=== PATIENT | male | born 1955 | race Caucasian/White ===

== ENCOUNTER 2016-09-22 12:32 | Emergency (ER) | payer SELFPAY ==
[2016-09-22 12:42] VITALS: BP 155/92; PULSE 74; TEMP 97.8; BMI 21.4
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
== END 2016-09-22 14:12 | disposition home or self-care (01) ==
LOC: JERFT 12:32
PROC: 2W3AX1Z Immobilization of Right Upper Arm using Splint (ICD-10-PCS; principal; 2016-09-22)
DX: S52.124A Nondisplaced fracture of head of right radius, initial encounter for closed fracture (principal); X58.XXXA Exposure to other specified factors, initial encounter; Y93.55 Activity, bike riding; Y92.410 Unspecified street and highway as the place of occurrence of the external cause; F17.210 Nicotine dependence, cigarettes, uncomplicated
CPT/HCPCS: 73070-TC-RT; 73090-TC-RT; 99282-25

== ENCOUNTER 2016-11-21 15:24 | Inpatient (IN) | payer BC ==
[2016-11-21 15:32] VITALS: BMI 22.3
--- NOTE | 2016-11-21 16:34 | PDOC ---
History of Present Illness - General Chief Complaint: CVA/TIA Stated Complaint: CHEST PAIN Time Seen by Provider: 11/21/16 16:08 History Source: Patient Exam Limitations: No Limitations - History of Present Illness Initial Comments: 11/21/16 16:29 The patient is a 61M with a PMH of CVA July 19, 2016 and HTN who presents to the ED with L sided weakness since Monday. 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 He thought that this would eventually go away and he is presenting today because it has not gone away. NIH Stroke Scale - Last Known Well Date/Time & Onset Date Last Known Well: 11/19/16 Time Last Known Well: 12:00 - Initial Evaluation Level of consciousness: Alert Ask patient the month and their age: Answers both correctly Ask patient to open & close eyes; make fist and let go: Obeys both correctly Best gaze (horizontal eye movement): Normal Visual field testing: No visual field loss Facial paresis (Show teeth/raise eyebrows/close eyes tight): Normal symmetrical movement Motor Function: Left Arm: Some effort against gravity Motor Function: Right Arm: Normal (extends arm 90 (or 45) degrees for 10 seconds without drift Motor Function: Left Leg: Normal (extends leg 30 degrees for 5 seconds without drift) Motor Function: Right Leg: Normal (extends leg 30 degrees for 5 seconds without drift) Limb Ataxia: No ataxia Sensory(Use pinprick test arms,legs,trunk,face/side to side): Normal Best language (Describe picture, name items, read sentences): No Aphasia Dysarthria (read several words): Normal articulation Extinction and Inattention: No abnormality - Total Score NIH Stroke Scale Score: 2 Past History - Past Medical History Allergies/Adverse Reactions: Allergies Allergy/AdvReac Type Severity Reaction Status Date / Time No Known Allergies Allergy Verified 11/21/16 15:28 Home Medications: Ambulatory Orders Oxycodone HCl/Acetaminophen [Percocet 5-325 mg Tablet] 1 - 2 tab PO Q6H PRN #8 tab MDD 4 09/22/16 Amlodipine Besylate [Norvasc -] 5 mg PO DAILY 11/21/16 Amlodipine Besylate [Norvasc -] 10 mg PO DAILY #30 tablet 11/23/16 Miscellaneous Medical Supply [Outpatient Order] 1 each ASDIR #1 [facility] [place] Miscellaneous Medical Supply [Outpatient Order] 1 each ASDIR #1 [facility] Valsartan [Diovan] 80 mg PO DAILY #30 tablet 11/23/16 Aspirin [ASA -] 81 mg PO DAILY #30 tab 11/24/16 Atorvastatin Calcium 40 mg PO DAILY #30 tab 11/24/16 Clopidogrel Bisulfate [Plavix -] 75 mg PO DAILY #30 tab 11/24/16 CVA: Yes HTN: Yes - Immunization History Immunization Up to Date: Yes - Suicide/Smoking/Psychosocial Hx Smoking History: Current every day smoker Have you smoked in the past 12 months: Yes Number of Cigarettes Smoked Daily: 10 Information on smoking cessation initiated: Yes 'Breaking Loose' booklet given: 11/21/16 Hx Alcohol Use: No Drug/Substance Use Hx: No Substance Use Type: None Review of Systems - Review of Systems Able to Perform ROS?: Yes Is the patient limited Pashto proficient: No Constitutional: No: Chills, Fever HEENTM: No: Eye Pain, Blurred Vision, Double Vision Respiratory: No: Cough, Shortness of Breath Cardiac (ROS): No: Chest Pain, Palpitations, Syncope ABD/GI: No: Nausea, Vomiting : No: Burning, Dysuria, Discharge Musculoskeletal: Yes: Muscle Weakness. No: Back Pain Neurological: Yes: Weakness (L arm and L leg). No: Headache, Numbness Endocrine: No: Unexplained Weight Gain, Change in Weight *Physical Exam - Vital Signs Last Vital Signs Temp Pulse Resp BP Pulse Ox 98.2 F 77 18 173/94 100 11/21/16 15:28 11/21/16 15:28 11/21/16 15:28 11/21/16 15:28 11/21/16 15:28 - Physical Exam General Appearance: Yes: Nourished, Appropriately Dressed. No: Apparent Distress HEENT: positive: Normal Voice, Hearing Grossly Normal Respiratory/Chest: positive: Lungs Clear, Normal Breath Sounds. negative: Chest Tender, Respiratory Distress, Rhonchi, Stridor, Wheezing Cardiovascular: positive: Regular Rhythm, Regular Rate, S1, S2. negative: Diastolic Murmur, Systolic Murmur Gastrointestinal/Abdominal: positive: Flat, Soft. negative: Tender Musculoskeletal: negative: CVA Tenderness, CVA Tenderness (R), CVA Tenderness (L ) Extremity: negative: Normal Range of Motion, Swelling, Calf Tenderness Integumentary: positive: Dry, Warm. negative: Clammy, Diaphoresis Neurologic: positive: shoe dyer II-XII NML intact, Fully Oriented, Alert, Normal Mood/ Affect, Respond to painful stimul, Responsive, Finger to Nose (Unable to complete on L side). negative: Motor Strength 5/5 (Motor strength 1/5 in L upper extremity), Abnormal Cranial NS, EOM Palsy, Facial Droop, Numbness, Sensory Deficit, Confused, Disoriented ED Treatment Course - LABORATORY CBC & Chemistry Diagram: 11/22/16 06:00 11/22/16 06:00 - RADIOLOGY Radiology Studies Ordered: Category Date Time Status HEAD CT WITHOUT CONTRAST [CT] Stat CT Scan 11/21/16 16:24 Ordered Medical Decision Making - Medical Decision Making 11/21/16 16:37 The patient is a 61M with a PMH of CVA 4 months ago and HTN who presents with a questionable CVA that occured 3 days ago. The patient is outside of the window of treatment for a CVA. I will still order tests to rule out an organic cause of this limb weakness. I will order the following and reassess the patient when they return: - CBC - CMP - EKG - CT head w/o contrast 11/21/16 17:28 CT shows no acute intracranial pathology. Labs pending. EKG NSR. 11/21/16 17:55 I have spoken with Dr. Swanson who accepts admission for the patient. *DC/Admit/Observation/Transfer Diagnosis at time of Disposition: CVA (cerebral vascular accident) Qualifiers: CVA mechanism: unspecified Qualified Code(s): I63.9 - Cerebral infarction, unspecified - Discharge Dispostion Condition at time of disposition: Stable - Prescriptions
--- NOTE | 2016-11-21 16:39 | PDOC ---
Attending Attestation - Resident Resident Name: Reece Chanel - ED Attending Attestation I have performed the following: I have examined & evaluated the patient, The case was reviewed & discussed with the resident, I agree w/resident's findings & plan, Exceptions are as noted
[2016-11-21 17:07] LABS: BASOPHIL 0.8 % (0-2.0); EOSINOPHIL 3.1 % (0-4.5); MCHC 33.4 g/dl (32.0-35.9); MEAN CELL VOLUME 86.8 fl (80-96); MEAN PLT VOLUME 9.1 fl (7.5-11.1); NEUTROPHILS 61.6 % (42.8-82.8); PLATELET COUNT 258 K/MM3 (134-434); RDW 15.1 % (11.9-15.9); WHITE BLOOD COUNT 8.2 K/mm3 (4.0-10.0)
[2016-11-21 18:08] LABS: ALBUMIN 3.6 g/dl (3.4-5.0); ALK PHOS 102 U/L (45-117); ANION GAP 8 (8-16); BILIRUBIN,TOTAL 0.2 mg/dL (0.2-1.0); CALCIUM 8.8 mg/dL (8.5-10.1); CO2 26 mmol/L (21-32); CREATININE 1.3 mg/dL (0.7-1.3); GLUCOSE,RANDOM 102 mg/dL (74-106); SGOT/AST 9 U/L (15-37); SGPT/ALT 17 U/L (12-78); TOT PROT 7.2 g/dl (6.4-8.2)
[2016-11-21] MEDS ORDERED: SODIUM CHLORIDE 0.9% 1000 ML INFUS.BAG IV ONE (18:31)
--- NOTE | 2016-11-21 19:37 | HP ---
Admitting History and Physical - Primary Care Physician PCP: David Swanson - Admission Chief Complaint: left sided weakness History of Present Illness: 61M with a PMH of CVA July 19, 2016 and HTN who presents to the ED with L sided weakness since Monday. 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 He thought that this would eventually go away and he is presenting today because it has not gone away. 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 Cardiovascular: Yes: HTN - Smoking History Smoking history: Current every day smoker Have you smoked in the past 12 months: Yes Aproximately how many cigarettes per day: 10 - Alcohol/Substance Use Hx Alcohol Use: No Home Medications - Allergies Allergies/Adverse Reactions: Allergies Allergy/AdvReac Type Severity Reaction Status Date / Time No Known Allergies Allergy Verified 11/21/16 15:28 - Home Medications Home Medications: Ambulatory Orders Oxycodone HCl/Acetaminophen [Percocet 5-325 mg Tablet] 1 - 2 tab PO Q6H PRN #8 tab MDD 4 09/22/16 Amlodipine Besylate [Norvasc -] 5 mg PO DAILY 11/21/16 Amlodipine Besylate [Norvasc -] 10 mg PO DAILY #30 tablet 11/23/16 Miscellaneous Medical Supply [Outpatient Order] 1 each ASDIR [facility]1 [facility] Miscellaneous Medical Supply [Outpatient Order] 1 each ASDIR #1 misc Valsartan [Diovan] 80 mg PO DAILY #30 tablet 11/23/16 Aspirin [ASA -] 81 mg PO DAILY #30 tab 11/24/16 Atorvastatin Calcium 40 mg PO DAILY #30 tab 11/24/16 Clopidogrel Bisulfate [Plavix -] 75 mg PO DAILY #30 tab 11/24/16 Physical Examination Vital Signs: Vital Signs Temperature 99.0 F 11/21/16 19:24 Pulse Rate 69 11/21/16 19:24 Respiratory Rate 16 11/21/16 19:24 Blood Pressure 167/99 11/21/16 19:24 O2 Sat by Pulse Oximetry (%) 97 11/21/16 19:24 Constitutional: Yes: No Distress HENT: Yes: Atraumatic Neck: Yes: Supple Cardiovascular: Yes: Regular Rate and Rhythm Respiratory: Yes: CTA Bilaterally Gastrointestinal: Yes: Normal Bowel Sounds Extremities: Yes: WNL Edema: No Neurological: Yes: Alert, Oriented ...Motor Strength: LUE (3/5), LLE (4/5) Labs: CBC, BMP 11/21/16 17:30 Problem List - Problems (1) HTN (hypertension) Assessment/Plan: on high side on meds cardiology consult Code(s): I10 - ESSENTIAL (PRIMARY) HYPERTENSION (2) CVA (cerebral vascular accident) Assessment/Plan: ct scan seen mri pending neuro consult Code(s): I63.9 - CEREBRAL INFARCTION, UNSPECIFIED Qualifiers: CVA mechanism: unspecified Qualified Code(s): I63.9 - Cerebral infarction, unspecified; I63.9 - Cerebral infarction, unspecified; I63.9 - Cerebral infarction, unspecified; I63.9 - Cerebral infarction, unspecified (3) Weakness Assessment/Plan: lux very weak cammy PT and neuro involve Code(s): R53.1 - WEAKNESS Assessment/Plan Laboratory Tests 11/21/16 11/21/16 11/21/16 16:50 16:50 17:30 WBC 8.2 RBC 5.07 Hgb 14.7 Hct 44.0 MCV 86.8 MCH 29.0 MCHC 33.4 RDW 15.1 Plt Count 258 MPV 9.1 Neutrophils % 61.6 Lymphocytes % 29.6 Monocytes % 4.9 Eosinophils % 3.1 Basophils % 0.8 Sodium Cancelled 140 Potassium Cancelled 3.6 Chloride Cancelled 106 Carbon Dioxide Cancelled 26 Anion Gap Cancelled 8 BUN Cancelled 19 H Creatinine Cancelled 1.3 Creat Clearance w eGFR Cancelled 55.94 Random Glucose Cancelled 102 Calcium Cancelled 8.8 Total Bilirubin Cancelled 0.2 AST Cancelled 9 L ALT Cancelled 17 Alkaline Phosphatase Cancelled 102 Total Protein Cancelled 7.2 Albumin Cancelled 3.6 Active Medications Generic Name Dose Route Start Last Admin Trade Name Freq PRN Reason Stop Dose Admin Amlodipine Besylate 5 mg 11/21/16 22:45 11/22/16 10:15 Norvasc - PO 5 mg DAILY NIDIA Administration Aspirin 81 mg 11/22/16 10:00 11/22/16 10:15 Asa - PO 81 mg DAILY NIDIA Administration Atorvastatin Calcium 40 mg 11/22/16 22:00 Lipitor - PO HS NIDIA Clopidogrel Bisulfate 75 mg 11/22/16 10:00 11/22/16 17:05 Plavix - PO 75 mg DAILY NIDIA Administration
[2016-11-21] MEDS: HEPARIN NA (PORCINE) 5,000 UNITS/ML 1ML VIAL SQ SCH (21:40)
[2016-11-21] MEDS: amLODIPine BESYLATE 5 MG TABLET (FP) PO SCH (22:46)
[2016-11-22 07:34] LABS: BASOPHIL 0.4 % (0-2.0); EOSINOPHIL 2.7 % (0-4.5); MCH 28.4 pg (25.7-33.7); MCHC 32.7 g/dl (32.0-35.9); MEAN CELL VOLUME 86.7 fl (80-96); MEAN PLT VOLUME 8.9 fl (7.5-11.1); NEUTROPHILS 59.6 % (42.8-82.8); PLATELET COUNT 249 K/MM3 (134-434); RDW 14.7 % (11.9-15.9); WHITE BLOOD COUNT 9.8 K/mm3 (4.0-10.0)
[2016-11-22 08:05] LABS: ALBUMIN 3.4 g/dl (3.4-5.0); ALK PHOS 95 U/L (45-117); ANION GAP 9 (8-16); BILIRUBIN,TOTAL 0.2 mg/dL (0.2-1.0); CALCIUM 9.1 mg/dL (8.5-10.1); CO2 23 mmol/L (21-32); GLUCOSE,RANDOM 93 mg/dL (74-106); SGOT/AST 11 U/L (15-37); SGPT/ALT 16 U/L (12-78); TOT PROT 6.6 g/dl (6.4-8.2)
[2016-11-22] MEDS ORDERED: amLODIPine BESYLATE 5 MG TABLET (FP) PO SCH (10:00)
[2016-11-22] MEDS ORDERED: CLOPIDOGREL BISULFATE 75 MG TABLET (FP) PO SCH (10:00)
[2016-11-22] MEDS: HEPARIN NA (PORCINE) 5,000 UNITS/ML 1ML VIAL SQ SCH (10:15)
[2016-11-22] MEDS: ASPIRIN 81 MG CHEWABLE TABLETS PO SCH (10:15)
[2016-11-22] MEDS: amLODIPine BESYLATE 5 MG TABLET (FP) PO SCH (10:15)
[2016-11-22] MEDS: CLOPIDOGREL BISULFATE 75 MG TABLET (FP) PO SCH (17:05)
--- NOTE | 2016-11-22 17:48 | PN ---
Progress Note, Physician - Current Medication List Current Medications: Active Medications Amlodipine Besylate (Norvasc -) 5 mg PO DAILY COUNT INCLUDES THE [facility] Last Admin: 11/22/16 10:15 Dose: 5 mg Aspirin (Asa -) 81 mg PO DAILY COUNT INCLUDES THE [facility] Last Admin: 11/22/16 10:15 Dose: 81 mg Atorvastatin Calcium (Lipitor -) 40 mg PO HS COUNT INCLUDES THE [facility] Clopidogrel Bisulfate (Plavix -) 75 mg PO DAILY COUNT INCLUDES THE [facility] Last Admin: 11/22/16 17:05 Dose: 75 mg - Objective Vital Signs: Vital Signs Temperature 97.7 F 11/22/16 13:49 Pulse Rate 64 11/22/16 13:49 Respiratory Rate 20 11/22/16 13:49 Blood Pressure 173/68 11/22/16 13:49 O2 Sat by Pulse Oximetry (%) 99 11/22/16 09:00 Constitutional: Yes: No Distress HENT: Yes: Atraumatic Neck: Yes: Supple Cardiovascular: Yes: Regular Rate and Rhythm Respiratory: Yes: CTA Bilaterally Gastrointestinal: Yes: Normal Bowel Sounds Extremities: Yes: WNL Edema: No Peripheral Pulses WNL: Yes Neurological: Yes: Alert, Oriented ...Motor Strength: LUE (same no improvement) Labs: CBC, BMP 11/22/16 06:00 11/22/16 06:00 Problem List - Problems (1) HTN (hypertension) Assessment/Plan: on high side on meds cardiology consult Code(s): I10 - ESSENTIAL (PRIMARY) HYPERTENSION (2) CVA (cerebral vascular accident) Assessment/Plan: lacunar infarct Code(s): I63.9 - CEREBRAL INFARCTION, UNSPECIFIED Qualifiers: CVA mechanism: unspecified Qualified Code(s): I63.9 - Cerebral infarction, unspecified; I63.9 - Cerebral infarction, unspecified; I63.9 - Cerebral infarction, unspecified; I63.9 - Cerebral infarction, unspecified (3) Weakness Assessment/Plan: due to cva...lacunar in farct PT eval Code(s): R53.1 - WEAKNESS
--- NOTE | 2016-11-22 18:16 | CONSULT ---
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 He is s/p CVA in July of this year with right sided weakness that improved and he returned to work. 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 No dysphagia. In ER: BP= 190/91 CT of head (reviewed) Mild atrophy with diffuse, hypertensive microvascular changes. DEANA: Thin. No bruits. Cor reg. NEURO: Awake, alert. MS normal Speech sl dysarthric No facial weakness. Decreased tongue SIVAN's. Gag OK Motor: Left drift. Markedly decrease SIVAN's left. Left grasp (4-/5). Mild left ankle dorsiflexion weakness. Brisk reflexes (L>R) except AJ's. B/L [place]is Coord: Slowed on left. Sensory: Decreased vib both toes. Gait: Sl wide-based. Mild left circumduction IMP: New Right cerebral dysfunction c/w Hypertensive lacunar infarct SUGGEST: MRI of brain. MR Angio of brain Carotid duplex doppler. Control BP to 120/70 range Check homocysteine, B12, and glycosylated hemoglobin A1-C Provide primary MD for BP and Chol f/u Continue plavix and ASA PM&R consultation for PT and OT as directed. Out patient rehab and neuro f/u. Thank you very much, Rubens Drummond MD
[2016-11-22] MEDS: ATORVASTATIN CA 40 MG TABLET (FP) PO SCH (22:00)
[2016-11-22] MEDS ORDERED: amLODIPine BESYLATE 5 MG TABLET (FP) PO ONE (22:00)
--- NOTE | 2016-11-22 22:32 | EKG ---
Test Reason : Blood Pressure : / mmHG Vent. Rate : 068 BPM Atrial Rate : 068 BPM P-R Int : 136 ms QRS Dur : 082 ms QT Int : 416 ms P-R-T Axes : 078 012 060 degrees QTc Int : 442 ms NORMAL SINUS RHYTHM NORMAL ECG NO PREVIOUS ECGS AVAILABLE CLINICAL CORRELATION IS RECOMMENDED Confirmed by IOANA BALTAZAR MD ([id number]) on 11/22/2016 10:32:36 PM Referred By: Confirmed By:IOANA BALTAZAR MD
[2016-11-23] MEDS: ASPIRIN 81 MG CHEWABLE TABLETS PO SCH (09:31)
[2016-11-23] MEDS: amLODIPine BESYLATE 5 MG TABLET (FP) PO SCH (09:31)
[2016-11-23] MEDS: CLOPIDOGREL BISULFATE 75 MG TABLET (FP) PO SCH (09:31)
[2016-11-23] MEDS: amLODIPine BESYLATE 10 MG TABLET (FP) PO SCH (09:31)
--- NOTE | 2016-11-23 11:00 | CON.CARD ---
Consult Consult Specialty:: Cardiology Referred by:: Dr. David Swanson Reason for Consultation:: Acute stroke - History of Present Illness Chief Complaint: Left-sided weakness History of Present Illness: 61M with a PMH of CVA July 19, 2016, HTN, hyperlipidemia, non-compliant with f/u and medications who presented to the ED with left-sided hand weakness and clumsiness progressing to L arm weakness, gait change with mild weakness left leg, slight dysarthia, denies headache, chest pain, palpitations, near or true syncope, orthopnea, PND or LE edema. Neurologic impairments improving since admission. In ER: BP= 190/91 CT of head (reviewed) Mild atrophy with diffuse, hypertensive microvascular changes. 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 Cardio/Vascular: Yes: HTN - Alcohol/Substance Use Hx Alcohol Use: No - Smoking History Smoking history: Current every day smoker Have you smoked in the past 12 months: Yes Aproximately how many cigarettes per day: 10 Home Medications - Allergies Allergies/Adverse Reactions: Allergies Allergy/AdvReac Type Severity Reaction Status Date / Time No Known Allergies Allergy Verified 11/21/16 15:28 - Home Medications Home Medications: Ambulatory Orders Oxycodone HCl/Acetaminophen [Percocet 5-325 mg Tablet] 1 - 2 tab PO Q6H PRN #8 tab MDD 4 09/22/16 Amlodipine Besylate [Norvasc -] 5 mg PO DAILY 11/21/16 Aspirin [ASA -] 81 mg PO DAILY 11/21/16 Atorvastatin Calcium 40 mg PO DAILY 11/21/16 Clopidogrel Bisulfate [Plavix -] 75 mg PO DAILY 11/21/16 Review of Systems - Review of Systems Neurological: reports: Change in Speech, Unsteady Gait, Weakness (LUE) Vital Signs: Vital Signs Temperature 97.9 F 11/23/16 09:29 Pulse Rate 60 11/23/16 09:29 Respiratory Rate 18 11/23/16 09:29 Blood Pressure 158/83 11/23/16 09:29 O2 Sat by Pulse Oximetry (%) 99 11/22/16 21:00 Constitutional: Yes: No Distress, Calm Neck: Yes: Supple Respiratory: Yes: Regular, CTA Bilaterally Gastrointestinal: Yes: Normal Bowel Sounds, Soft Cardiovascular: Yes: Regular Rate and Rhythm JVD: No Carotid Bruit: No Heart Sounds: Yes: S1, S2 Edema: No ...Motor Strength: LUE (2/5), LLE (4/5) - Other Data Labs, Other Data: CBC, BMP 11/22/16 06:00 11/22/16 06:00 Imaging - Results Chest X-ray: Report Reviewed (NAD) MRI: Report Reviewed (Acute right internal capsule lacunar infarct) EKG: Report Reviewed (NSR @ 85) Problem List - Problems (1) CVA (cerebral vascular accident) Code(s): I63.9 - CEREBRAL INFARCTION, UNSPECIFIED Qualifiers: CVA mechanism: unspecified Qualified Code(s): I63.9 - Cerebral infarction, unspecified; I63.9 - Cerebral infarction, unspecified; I63.9 - Cerebral infarction, unspecified; I63.9 - Cerebral infarction, unspecified (2) Hypertensive emergency Code(s): I16.1 - HYPERTENSIVE EMERGENCY (3) Hyperlipidemia Code(s): E78.5 - HYPERLIPIDEMIA, UNSPECIFIED Qualifiers: Hyperlipidemia type: pure hypercholesterolemia Qualified Code(s): E78.00 - Pure hypercholesterolemia, unspecified; E78.00 - Pure hypercholesterolemia, unspecified; E78.00 - Pure hypercholesterolemia, unspecified; E78.0 - Pure hypercholesterolemia (4) Noncompliance with medications Code(s): Z91.14 - PATIENT'S OTHER NONCOMPLIANCE WITH MEDICATION REGIMEN (5) Smoking addiction Code(s): F17.200 - NICOTINE DEPENDENCE, UNSPECIFIED, UNCOMPLICATED Assessment/Plan 1. Acute right hypertensive lacunar infarct 2. Hypertensive emergency, BP not at goal 3. Hyperlipidemia 4. Medication noncompliance 5. Ongoing tobacco abuse P:1. Continue ASA 81 qd, Plavix 75 qd, Lipitor 40 qhs, Norvasc 5 qd, add Diovan 80 qd with uptitration as tolerated 2. F/u echocardiogram to assess ventricular and valve fxn, hall monitor r/ o PAF 3. PT->acute rehab 4. Thank you for consultative opportunity, addressed importance of medication/ follow-up compliance and smoking cessation
--- NOTE | 2016-11-23 17:16 | PN ---
Progress Note, Physician - Current Medication List Current Medications: Active Medications Amlodipine Besylate (Norvasc -) 10 mg PO DAILY [facility] Last Admin: 11/23/16 09:31 Dose: 10 mg Aspirin (Asa -) 81 mg PO DAILY [facility] Last Admin: 11/23/16 09:31 Dose: 81 mg Atorvastatin Calcium (Lipitor -) 40 mg PO HS [facility] Last Admin: 11/22/16 22:00 Dose: 40 mg Clopidogrel Bisulfate (Plavix -) 75 mg PO DAILY [facility] Last Admin: 11/23/16 09:31 Dose: 75 mg Valsartan (Diovan -) 80 mg PO DAILY [facility] - Objective Vital Signs: Vital Signs Temperature 98.1 F 11/23/16 13:42 Pulse Rate 66 11/23/16 13:42 Respiratory Rate 18 11/23/16 13:42 Blood Pressure 163/82 11/23/16 13:42 O2 Sat by Pulse Oximetry (%) 98 11/23/16 09:00 Constitutional: Yes: No Distress HENT: Yes: Atraumatic Neck: Yes: Supple Cardiovascular: Yes: Regular Rate and Rhythm Respiratory: Yes: CTA Bilaterally Gastrointestinal: Yes: Normal Bowel Sounds Extremities: Yes: WNL Neurological: Yes: Alert, Oriented ...Motor Strength: LUE (3/5) Labs: CBC, BMP 11/22/16 06:00 11/22/16 06:00 Problem List - Problems (1) HTN (hypertension) Code(s): I10 - ESSENTIAL (PRIMARY) HYPERTENSION (2) CVA (cerebral vascular accident) Assessment/Plan: lacunar infarct secondary to uncontrolled bp Code(s): I63.9 - CEREBRAL INFARCTION, UNSPECIFIED Qualifiers: CVA mechanism: unspecified Qualified Code(s): I63.9 - Cerebral infarction, unspecified; I63.9 - Cerebral infarction, unspecified; I63.9 - Cerebral infarction, unspecified; I63.9 - Cerebral infarction, unspecified (3) Weakness Code(s): R53.1 - WEAKNESS (4) Hyperlipidemia Code(s): E78.5 - HYPERLIPIDEMIA, UNSPECIFIED Qualifiers: Hyperlipidemia type: pure hypercholesterolemia Qualified Code(s): E78.00 - Pure hypercholesterolemia, unspecified; E78.00 - Pure hypercholesterolemia, unspecified; E78.00 - Pure hypercholesterolemia, unspecified; E78.0 - Pure hypercholesterolemia (5) Hypertensive emergency Assessment/Plan: on meds better controlled dr esquivel on case Code(s): I16.1 - HYPERTENSIVE EMERGENCY Assessment/Plan dc in am if stable prescription sent
[2016-11-23] MEDS: ATORVASTATIN CA 40 MG TABLET (FP) PO SCH (21:44)
[2016-11-24] MEDS: amLODIPine BESYLATE 10 MG TABLET (FP) PO SCH (09:31)
[2016-11-24] MEDS: CLOPIDOGREL BISULFATE 75 MG TABLET (FP) PO SCH (09:31)
[2016-11-24] MEDS: ASPIRIN 81 MG CHEWABLE TABLETS PO SCH (09:31)
[2016-11-24 09:34] VITALS: TEMP 97.5
[2016-11-24] MEDS ORDERED: VALSARTAN 80 MG TABLET (UD) PO SCH ×2 (10:00→10:26)
--- NOTE | 2016-11-24 10:21 | PN ---
Progress Note, Physician History of Present Illness: LUE weakness slowly resolving. BP remains elevated. No events on telemetry. - Current Medication List Current Medications: Active Medications Amlodipine Besylate (Norvasc -) 10 mg PO DAILY [facility] Last Admin: 11/24/16 09:31 Dose: 10 mg Aspirin (Asa -) 81 mg PO DAILY [facility] Last Admin: 11/24/16 09:31 Dose: 81 mg Atorvastatin Calcium (Lipitor -) 40 mg PO HS [facility] Last Admin: 11/23/16 21:44 Dose: 40 mg Clopidogrel Bisulfate (Plavix -) 75 mg PO DAILY [facility] Last Admin: 11/24/16 09:31 Dose: 75 mg Valsartan (Diovan -) 80 mg PO DAILY [facility] Last Admin: 11/24/16 09:31 Dose: 80 mg - Objective Vital Signs: Vital Signs Temperature 97.5 F L 11/24/16 09:33 Pulse Rate 65 11/24/16 09:33 Respiratory Rate 20 11/24/16 09:33 Blood Pressure 175/76 11/24/16 09:33 O2 Sat by Pulse Oximetry (%) 98 11/23/16 21:00 Constitutional: Yes: No Distress, Calm Neck: Yes: Supple Cardiovascular: Yes: Regular Rate and Rhythm Respiratory: Yes: Regular, CTA Bilaterally Gastrointestinal: Yes: Normal Bowel Sounds, Soft Edema: No Neurological: Yes: Weakness ...Motor Strength: LUE Labs: CBC, BMP 11/22/16 06:00 11/22/16 06:00 - ....Imaging EKG: Report Reviewed (Tele: NSR with out PAF) Problem List - Problems (1) CVA (cerebral vascular accident) Code(s): I63.9 - CEREBRAL INFARCTION, UNSPECIFIED Qualifiers: CVA mechanism: unspecified Qualified Code(s): I63.9 - Cerebral infarction, unspecified; I63.9 - Cerebral infarction, unspecified; I63.9 - Cerebral infarction, unspecified; I63.9 - Cerebral infarction, unspecified (2) Hypertensive emergency Code(s): I16.1 - HYPERTENSIVE EMERGENCY (3) Hyperlipidemia Code(s): E78.5 - HYPERLIPIDEMIA, UNSPECIFIED Qualifiers: Hyperlipidemia type: pure hypercholesterolemia Qualified Code(s): E78.00 - Pure hypercholesterolemia, unspecified; E78.00 - Pure hypercholesterolemia, unspecified; E78.00 - Pure hypercholesterolemia, unspecified; E78.0 - Pure hypercholesterolemia (4) Noncompliance with medications Code(s): Z91.14 - PATIENT'S OTHER NONCOMPLIANCE WITH MEDICATION REGIMEN (5) Smoking addiction Code(s): F17.200 - NICOTINE DEPENDENCE, UNSPECIFIED, UNCOMPLICATED Assessment/Plan Echo: Normal LV size and fxn, mild AR 1. Acute right hypertensive lacunar infarct with improving LUE weakness 2. Hypertensive emergency, BP not at goal 3. Hyperlipidemia 4. Medication noncompliance 5. Ongoing tobacco abuse P:1. Continue ASA 81 qd, Plavix 75 qd, Lipitor 40 qhs, Norvasc 10 qd, increase Diovan 160 qd with uptitration as tolerated 2. PT->home PT 3. Emphasized importance of medication and f/u compliance and smoking cessation
[2016-11-24] MEDS ORDERED: VALSARTAN 80 MG TABLET (UD) PO ONE (10:45)
[2016-11-24 11:22] VITALS: PULSE 62
[2016-11-24 11:41] VITALS: BP 159/78
--- NOTE | 2016-11-24 16:59 | DS ---
Physical Examination Vital Signs: Vital Signs Temperature 97.5 F L 11/24/16 09:33 Pulse Rate 62 11/24/16 10:30 Respiratory Rate 18 11/24/16 10:30 Blood Pressure 159/78 11/24/16 10:45 O2 Sat by Pulse Oximetry (%) 100 11/24/16 09:00 Constitutional: Yes: No Distress HENT: Yes: Atraumatic Neck: Yes: Supple Cardiovascular: Yes: Regular Rate and Rhythm Respiratory: Yes: CTA Bilaterally Gastrointestinal: Yes: Normal Bowel Sounds Extremities: Yes: WNL Neurological: Yes: Alert, Oriented Labs: CBC, BMP 11/22/16 06:00 11/22/16 06:00 Discharge Summary Reason For Visit: CEREBRAL VASCULAR ACCIDENT Current Active Problems CVA (cerebral vascular accident) (Acute) HTN (hypertension) (Acute) Hyperlipidemia (Acute) Hypertensive emergency (Acute) Noncompliance with medications (Acute) Smoking addiction (Acute) Weakness (Acute) - Instructions Referrals: Rubens Drummond MD [Staff Physician] - David Swanson MD [Staff Physician] - Disposition: HOME - Home Medications Comprehensive Discharge Medication List: Ambulatory Orders Oxycodone HCl/Acetaminophen [Percocet 5-325 mg Tablet] 1 - 2 tab PO Q6H PRN #8 tab MDD 4 09/22/16 Amlodipine Besylate [Norvasc -] 5 mg PO DAILY 11/21/16 Amlodipine Besylate [Norvasc -] 10 mg PO DAILY #30 tablet 11/23/16 Miscellaneous Medical Supply [Outpatient Order] 1 each ASDIR #1 misc Miscellaneous Medical Supply [Outpatient Order] 1 each ASDIR #1 misc Valsartan [Diovan] 80 mg PO DAILY #30 tablet 11/23/16 Aspirin [ASA -] 81 mg PO DAILY #30 tab 11/24/16 Atorvastatin Calcium 40 mg PO DAILY #30 tab 11/24/16 Clopidogrel Bisulfate [Plavix -] 75 mg PO DAILY #30 tab 11/24/16 dc home
[2016-11-25] MEDS ORDERED: VALSARTAN 80 MG TABLET (UD) PO SCH (10:00)
== END 2016-11-24 10:53 | disposition home or self-care (01) | DRG 65 ==
LOC: JER 15:24 → JERBED 17:18 → OBSVTOIN 19:27 → J4S 21:09
PROVIDERS: ADMIT Internal Medicine; ATTEND Internal Medicine
DX: I63.9 Cerebral infarction, unspecified (principal); I16.1 Hypertensive emergency; G81.94 Hemiplegia, unspecified affecting left nondominant side; F17.210 Nicotine dependence, cigarettes, uncomplicated; R53.1 Weakness; E78.5 Hyperlipidemia, unspecified; Z91.14 Patient's other noncompliance with medication regimen; R47.1 Dysarthria and anarthria
CPT/HCPCS: 36415; 70450-TC; 70544-TC; 70551-TC; 80053; 85025; 93005; 93010; 93306-TC; 93880-TC; 97116-GP; 97161-GP; 99285-25; G0378

== ENCOUNTER 2018-08-27 00:54 | Emergency (ER) | payer SELFPAY ==
[2018-08-27 01:09] VITALS: BP 165/125; PULSE 84; TEMP 97.6; BMI 22.3
--- NOTE | 2018-08-27 01:19 | PDOC ---
History of Present Illness - General Stated Complaint: STROKE Time Seen by Provider: 08/27/18 01:03 - History of Present Illness Initial Comments: 08/27/18 01:17 62 yo M with h/o right lacunar infarct( residual left sided weakness), HTN, HLD , tobacco use, who p/w slurred speech. Patient denies JENSEN, vision change, palpitations, cough, wheezing, orthopena, PND , leg swelling/pain, N/V, F,C, CP, SOB, urinary complaints, hematuria, BPR, abdominal pain, diarrhea, constipation, lightheadedness, weakness, sensory changes. PMHx: as noted above ROS: as noted SHx: Denies Etoh, IVDA, tobacco use Allergies: NKDA Past History - Past Medical History Allergies/Adverse Reactions: Allergies Allergy/AdvReac Type Severity Reaction Status Date / Time No Known Allergies Allergy Verified 11/21/16 15:28 Home Medications: Ambulatory Orders Oxycodone HCl/Acetaminophen [Percocet 5-325 mg Tablet] 1 - 2 tab PO Q6H PRN #8 tab MDD 4 09/22/16 Amlodipine Besylate [Norvasc -] 5 mg PO DAILY 11/21/16 Amlodipine Besylate [Norvasc -] 10 mg PO DAILY #30 tablet 11/23/16 Miscellaneous Medical Supply [Outpatient Order] 1 each ASDIR #1 misc Miscellaneous Medical Supply [Outpatient Order] 1 each ASDIR #1 misc Valsartan [Diovan] 80 mg PO DAILY #30 tablet 11/23/16 Aspirin [ASA -] 81 mg PO DAILY #30 tab 11/24/16 Atorvastatin Calcium 40 mg PO DAILY #30 tab 11/24/16 Clopidogrel Bisulfate [Plavix -] 75 mg PO DAILY #30 tab 11/24/16 CVA: Yes COPD: No HTN: Yes Hypercholesterolemia: Yes - Immunization History Immunization Up to Date: Yes - Suicide/Smoking/Psychosocial Hx Smoking History: Unknown if ever smoked Have you smoked in the past 12 months: Yes Number of Cigarettes Smoked Daily: 10 'Breaking Loose' booklet given: 11/21/16 Hx Alcohol Use: No Drug/Substance Use Hx: No Substance Use Type: None *Physical Exam - Vital Signs Last Vital Signs Temp Pulse Resp BP Pulse Ox 97.6 F 84 18 165/125 H 99 07/15/19 01:07 08/27/18 01:07 08/27/18 01:07 08/27/18 01:07 08/27/18 01:07 ED Treatment Course - RADIOLOGY Radiology Studies Ordered: Category Date Time Status HEAD CT WITHOUT CONTRAST [CT] Stat CT Scan 08/27/18 01:04 Ordered
== END 2018-08-27 02:07 | disposition left against medical advice (07) ==
LOC: JER 00:54
DX: Z53.21 Procedure and treatment not carried out due to patient leaving prior to being seen by health care provider (principal)
CPT/HCPCS: 99281-25

== ENCOUNTER 2018-08-27 14:40 | Emergency (ER) | payer SELFPAY ==
[2018-08-27 14:58] VITALS: BP 173/87; PULSE 68; TEMP 97.7; BMI 21.2
--- NOTE | 2018-08-27 15:01 | PDOC ---
Rapid Medical Evaluation Chief Complaint: CVA/TIA Time Seen by Provider: 08/27/18 14:54 Medical Evaluation: Allergies Allergy/AdvReac Type Severity Reaction Status Date / Time No Known Allergies Allergy Verified 11/21/16 15:28 08/27/18 14:54 I have performed a brief in-person evaluation of this patient. The patient presents with a chief complaint of: h/o 2 previous CVA brought in by for evaluation of possible stroke. Patient was here overnight but eloped before being seen because he report he was waiting for too long. patient and report has been having worsening slurred speech for 4 days now. Patient denies JENSEN, weakness, numbness sensation or pain. Pertinent physical exam findings: A&O x 3 in NAD. mild slurred speech. EOMI b/l GABY b/l. normal facial symetry. Patient report has not been taking his BP meds I have ordered the following: CBC, CMP, PT/PTT The patient will proceed to the ED for further evaluation Discharge Disposition - Diagnosis Slurring of speech - Discharge Dispostion Condition at time of disposition: Stable - Referrals - Patient Instructions - Post Discharge Activity
== END 2018-08-27 16:42 | disposition left against medical advice (07) ==
LOC: JER 14:40
DX: R47.81 Slurred speech (principal); Z86.73 Personal history of transient ischemic attack (TIA), and cerebral infarction without residual deficits
CPT/HCPCS: 99281-25

== ENCOUNTER 2020-04-26 19:21 | Inpatient (IN) | payer OTHER ==
[2020-04-26] MEDS: SODIUM CHLORIDE 1,000 ML IV SCH (20:00)
[2020-04-26 20:09] LABS: BASO % 0.5 % (0-2.0); EOS % 1.9 % (0-4.5); HEMOGLOBIN 15.3 GM/dL (11.7-16.9); MCH 29.2 pg (25.7-33.7); MEAN CELL VOLUME 85.8 fl (80-96); MEAN PLT VOLUME 8.9 fl (7.5-11.1); MONO % 5.6 % (3.8-10.2); PLATELET COUNT 278 K/MM3 (134-434); RBC 5.24 M/mm3 (4.00-5.60); RDW 15.1 % (11.9-15.9); WHITE BLOOD COUNT 14.7 K/mm3 (4.0-10.0)
[2020-04-26 20:15] LABS: INR 1.04 (0.83-1.09); PROTHROMBIN TIME (PATIENT) 12.6 SEC (9.7-13.0)
[2020-04-26 20:18] LABS: ACTIVATED PTT 30.7 SECONDS (25.2-36.5)
[2020-04-26 20:23] LABS: CHLORIDE 109 mmol/L (98-107); POTASSIUM 3.7 mmol/L (3.5-5.1); SODIUM 139 mmol/L (136-145)
[2020-04-26 20:26] LABS: ALBUMIN 3.8 g/dl (3.4-5.0); ANION GAP 7 MMOL/L (8-16); BLOOD UREA NITROGEN 14.6 mg/dL (7-18); CALCIUM 9.1 mg/dL (8.5-10.1); CO2 23 mmol/L (21-32); GLUCOSE,RANDOM 98 mg/dL (74-106)
[2020-04-26 20:29] LABS: CREATININE 1.7 mg/dL (0.55-1.3); SGOT/AST 17 U/L (15-37); SGPT/ALT 38 U/L (13-61); TRIGLYCERIDES 236 mg/dL (0-150)
[2020-04-26 20:30] LABS: CHOLESTEROL 239 mg/dL (50-200)
[2020-04-26 20:31] LABS: BILIRUBIN,TOTAL 0.3 mg/dL (0.2-1); LDL CHOLESTEROL (ONLY SJRH) 166 mg/dL (5-100); TOT PROT 7.6 g/dl (6.4-8.2)
[2020-04-26 20:32] LABS: ALK PHOS 122 U/L (45-117); HDL CHOLESTEROL 34 mg/dL (40-60)
[2020-04-26 21:38] LABS: EPI CELLS >36 /uL (0-25.1); HYALINE CASTS 6 /uL (0-3.1); PH,URINE 7.5 (5.0-8.0); URINE APPEARANCE CLEAR; URINE BACTERIA 74 /uL (0-1359); URINE BILIRUBIN NEGATIVE (NEGATIVE); URINE COLOR YELLOW; URINE GLUCOSE (UA) NEGATIVE (NEGATIVE); URINE KETONE NEGATIVE (NEGATIVE); URINE LEUK ESTERASE NEGATIVE (NEGATIVE); URINE NITRITE NEGATIVE (NEGATIVE); URINE PROTEIN 2+ (NEGATIVE); URINE RBC 24 /uL (0-23.9); URINE UROBILINOGEN 0.2 mg/dL (0.2-1.0)
[2020-04-26] MEDS ORDERED: ASPIRIN 81 MG CHEWABLE TABLETS PO ONE (21:46)
[2020-04-26] MEDS ORDERED: ASPIRIN 81 MG CHEWABLE TABLETS ONE (22:37)
[2020-04-26 23:57] LABS: URINE WBC 87.9 /uL (0-25.8)
[2020-04-27 02:59] VITALS: BMI 24.3
[2020-04-27] MEDS: HEPARIN NA (PORCINE) 5,000 UNITS/ML 1ML VIAL SQ SCH ×3 (06:00→22:02)
[2020-04-27] MEDS: ASPIRIN 81 MG CHEWABLE TABLETS PO SCH (09:22)
[2020-04-27 09:53] LABS: BASO % 0.4 % (0-2.0); EOS % 1.1 % (0-4.5); HEMATOCRIT 40.9 % (35.4-49); HEMOGLOBIN 13.9 GM/dL (11.7-16.9); LYMPH % 29.7 % (8-40); MCH 29.1 pg (25.7-33.7); MEAN CELL VOLUME 85.7 fl (80-96); MEAN PLT VOLUME 8.9 fl (7.5-11.1); MONO % 4.9 % (3.8-10.2); NEUT % 63.9 % (42.8-82.8); PLATELET COUNT 259 K/MM3 (134-434); RBC 4.78 M/mm3 (4.00-5.60)
[2020-04-27 10:20] LABS: POTASSIUM 3.7 mmol/L (3.5-5.1)
[2020-04-27 10:29] LABS: CALCIUM 9.1 mg/dL (8.5-10.1)
[2020-04-27 10:30] LABS: ALBUMIN 3.6 g/dl (3.4-5.0); BLOOD UREA NITROGEN 14.8 mg/dL (7-18)
[2020-04-27 10:33] LABS: BILIRUBIN,TOTAL 0.6 mg/dL (0.2-1); CREATININE 1.3 mg/dL (0.55-1.3)
[2020-04-27 10:35] LABS: PHOSPHOROUS 3.4 mg/dL (2.5-4.9)
[2020-04-27] MEDS: ATORVASTATIN CA 80 MG TABLET (FP) PO SCH (21:14)
[2020-04-27] MEDS: SODIUM CHLORIDE 1,000 ML IV SCH (22:02)
[2020-04-28] MEDS: HEPARIN NA (PORCINE) 5,000 UNITS/ML 1ML VIAL SQ SCH ×3 (05:56→22:04)
[2020-04-28 07:34] LABS: BASO % 0.9 % (0-2.0); EOS % 2.3 % (0-4.5); HEMATOCRIT 41.8 % (35.4-49); HEMOGLOBIN 14.5 GM/dL (11.7-16.9); LYMPH % 33.2 % (8-40); MCH 29.5 pg (25.7-33.7); MCHC 34.6 g/dl (32.0-35.9); MEAN CELL VOLUME 85.3 fl (80-96); MEAN PLT VOLUME 8.8 fl (7.5-11.1); NEUT % 57.6 % (42.8-82.8); PLATELET COUNT 265 K/MM3 (134-434); WHITE BLOOD COUNT 9.7 K/mm3 (4.0-10.0)
[2020-04-28 07:57] LABS: ALBUMIN 3.6 g/dl (3.4-5.0); BLOOD UREA NITROGEN 14.4 mg/dL (7-18); CALCIUM 9.3 mg/dL (8.5-10.1)
[2020-04-28 08:00] LABS: CREATININE 1.3 mg/dL (0.55-1.3); PHOSPHOROUS 2.8 mg/dL (2.5-4.9)
[2020-04-28 08:02] LABS: BILIRUBIN,TOTAL 0.6 mg/dL (0.2-1); CHOLESTEROL 233 mg/dL (50-200); TOT PROT 7.3 g/dl (6.4-8.2); TRIGLYCERIDES 177 mg/dL (0-150)
[2020-04-28 08:03] LABS: LDL CHOLESTEROL (ONLY SJRH) 167 mg/dL (5-100)
[2020-04-28 08:05] LABS: HDL CHOLESTEROL 38 mg/dL (40-60)
[2020-04-28 08:30] LABS: POTASSIUM 4.4 mmol/L (3.5-5.1)
[2020-04-28] MEDS: ASPIRIN 81 MG CHEWABLE TABLETS PO SCH (09:09)
[2020-04-28] MEDS ORDERED: amLODIPine BESYLATE 5 MG TABLET (FP) PO SCH (10:00)
[2020-04-28] MEDS: D5-1/2NS+20 MEQ KCL - 20 MEQ/1,000 ML INFUS.BAG IV SCH (11:10)
[2020-04-28] MEDS ORDERED: FAMOTIDINE 20 MG TABLET PO ONE (22:03)
[2020-04-28] MEDS: ATORVASTATIN CA 80 MG TABLET (FP) PO SCH (22:03)
[2020-04-29] MEDS: HEPARIN NA (PORCINE) 5,000 UNITS/ML 1ML VIAL SQ SCH ×2 (06:54→15:17)
[2020-04-29 08:44] LABS: BASO % 0.6 % (0-2.0); EOS % 1.9 % (0-4.5); HEMOGLOBIN 14.3 GM/dL (11.7-16.9); LYMPH % 35.4 % (8-40); MCH 28.9 pg (25.7-33.7); MCHC 34.1 g/dl (32.0-35.9); MEAN CELL VOLUME 84.9 fl (80-96); MEAN PLT VOLUME 8.6 fl (7.5-11.1); MONO % 6.2 % (3.8-10.2); NEUT % 55.9 % (42.8-82.8); PLATELET COUNT 284 K/MM3 (134-434); RBC 4.95 M/mm3 (4.00-5.60); RDW 14.8 % (11.9-15.9); WHITE BLOOD COUNT 8.8 K/mm3 (4.0-10.0)
[2020-04-29 09:20] LABS: POTASSIUM 3.9 mmol/L (3.5-5.1)
[2020-04-29 09:25] LABS: ALBUMIN 3.6 g/dl (3.4-5.0); BLOOD UREA NITROGEN 14.3 mg/dL (7-18)
[2020-04-29 09:29] LABS: CREATININE 1.3 mg/dL (0.55-1.3); PHOSPHOROUS 3.4 mg/dL (2.5-4.9)
[2020-04-29 09:30] LABS: BILIRUBIN,TOTAL 0.7 mg/dL (0.2-1)
[2020-04-29 09:31] LABS: CALCIUM 9.2 mg/dL (8.5-10.1); TOT PROT 7.2 g/dl (6.4-8.2)
[2020-04-29] MEDS: ASPIRIN 81 MG CHEWABLE TABLETS PO SCH (10:26)
[2020-04-29] MEDS: D5-1/2NS+20 MEQ KCL - 20 MEQ/1,000 ML INFUS.BAG IV SCH (15:17)
[2020-04-29 15:28] VITALS: BP 126/75; PULSE 61; TEMP 97.5
== END 2020-04-29 16:32 | disposition home or self-care (01) | DRG 57 ==
LOC: JER 19:21 → JERBED 21:46 → J6WEST-2 04-27 02:03
PROVIDERS: ADMIT Internal Medicine; ATTEND Student in an Organized Health Care Education/Training Program
DX: I69.321 Dysphasia following cerebral infarction (principal); I69.354 Hemiplegia and hemiparesis following cerebral infarction affecting left non-dominant side; N17.9 Acute kidney failure, unspecified; J98.11 Atelectasis; E87.0 Hyperosmolality and hypernatremia; T17.828A Food in other parts of respiratory tract causing other injury, initial encounter; E78.5 Hyperlipidemia, unspecified; F14.90 Cocaine use, unspecified, uncomplicated; I12.9 Hypertensive chronic kidney disease with stage 1 through stage 4 chronic kidney disease, or unspecified chronic kidney disease; N18.30 Chronic kidney disease, stage 3 unspecified; I69.392 Facial weakness following cerebral infarction; R32 Unspecified urinary incontinence; D72.829 Elevated white blood cell count, unspecified; X58.XXXA Exposure to other specified factors, initial encounter; Y93.9 Activity, unspecified; Y92.9 Unspecified place or not applicable
CPT/HCPCS: 36415; 70450-TC; 70551-TC; 71045-TC-FY; 74230-TC-FY; 76775-TC; 80048; 80053; 80061; 81003; 82550; 82565; 83036; 83721; 83735; 83970; 84100; 84156; 84443; 84484; 85025; 85610; 85730; 86850; 86900; 86901; 92611-GN; 93005; 93010; 93306-TC; 93880-TC; 97116-GP; 97161-GP; 99285-25; C9803; J1644; U0003